=== PATIENT | female | born 2000 | race Caucasian/White ===

== ENCOUNTER 2022-11-20 19:02 | Emergency (ER) | payer BC, SELFPAY ==
[2022-11-20 19:23] VITALS: BP 161/94; PULSE 122; RESP 18; TEMP 37.3; O2SAT 98; BMI 49.8
--- NOTE | 2022-11-20 19:27 | CRLHL7_ITS ---
For Patients: As a result of the Cures Act, medical imaging exams and procedure reports are released immediately into your electronic medical record. You may view this report before your referring provider. If you have questions, please contact your health care provider. INDICATION: Fall, pain. TECHNIQUE: Three views of the left ankle. FINDINGS: Large amount of soft tissue swelling around the left ankle. No fracture or dislocation. Mortise appears intact. Dictated by Devante Hughes MD @ 11/20/2022 7:48:56 PM Dictated by: Devante Hughes MD @ 11/20/2022 19:49:03 (Electronically Signed)
--- NOTE | 2022-11-20 19:28 | ED_ITS ---
HPI - Extremity Injury (Lower) General Time Seen by Provider: 19:28 Date Seen: 11/20/22 Chief Complaint: Extremity Pain/Injury, Lower Stated Complaint: Ankle Injury Time Seen by Provider: 11/20/22 19:25 Source: patient and RN notes reviewed Mode of arrival: wheelchair Limitations: no limitations History of Present Illness HPI Narrative: Patient is a 22-year-old female coming to the ER with left ankle pain. She slipped on the ice about an hour ago injuring the left ankle. Not exactly sure what happened. She states it hurts around the ankle, not necessarily 1 p articular spot. No numbness or tingling. Nothing else was injured, did not hit her head. Related Data Home Medications Medication Instructions Recorded Confirmed No Known Home Medications 11/20/22 11/20/22 Allergies Allergy/AdvReac Type Severity Reaction Status Date / Time No Known Drug Allergies Allergy Verified 11/20/22 19:27 Review of Systems Narrative: As per HPI PFSH PFSH Social History Smoking Status: Never smoker How often do you have a drink containing alcohol: never AUDIT-C Alcohol total score: 0 Non-prescribed substance use: denies use Exam Const: Vital Signs, click to edit/add: Vital Signs - 24 hr 11/20/22 19:23 11/20/22 20:38 Temperature 99.1 F 99.1 F Pulse Rate [Left P ulse Oximeter] 122 H 101 H Respiratory Rate 18 18 Blood Pressure [Ri ght Forearm] 161/94 H 161/94 H Pulse Oximetry 98 Oxygen Delivery Me thod Room Air Documenting provider has reviewed patient's vital signs: yes Common normals: no apparent distress, oriented x3, no limitations, healthy appearing, alert and well nourished Other: 22-year-old female seen in triage, brought in in wheelchair. She has generalize ankle swelling, no ecchymosis. She has normal dorsalis pedis and posterior tibialis pulse. Normal sensation distally in her foot. Range of motion is painful at the ankle. She has more point tenderness over the distal lateral malleolus, does not seem to be tender over the medial malleolus. No gross joint swelling off the ankle. Will proceed with a left ankle x-ray. Neuro: Common normals: oriented x3 Sensorium/orientation: alert Course Course Hospital Course: Have advised patient will be obtaining a left ankle x-ray, she is in agreement with this plan. We will see if there is underlying fracture or just ankle sprain based on her imaging. Reevaluation(s) Reevaluation #1: Reviewed negative x-ray for fracture, this would represent an ankle sprain. Will see how she does with the stirrup splint. Time: 20:09 Reevaluation #2: Patient was still having significant pain with the gel splint on, will center with crutches to aid in ambulation. Given her mom to pain, am going to have her follow up in clinic for recheck regardless. Time: 20:12 Vital Signs Vital signs: Initial Vital Signs Temperature 99.1 F 11/20/22 19:23 Temperature Source Temporal Artery Scan 11/20/22 19:23 Pulse Rate 122 H 11/20/22 19:23 Respiratory Rate 18 11/20/22 19:23 Blood Pressure 161/94 H 11/20/22 19:23 Blood Pressure Mean 116 11/20/22 19:23 Blood Pressure Position Sitting 11/20/22 19:23 Pulse Oximetry 98 11/20/22 19:23 Oxygen Delivery Method 11/20/22 19:23 Vital Signs Temperature 99.1 F 11/20/22 19:23 Pulse Rate 122 H 11/20/22 19:23 Respiratory Rate 18 11/20/22 19:23 Blood Pressure 161/94 H 11/20/22 19:23 Pulse Oximetry 98 11/20/22 19:23 Oxygen Delivery Method 11/20/22 19:23 Temperature 99.1 F 11/20/22 20:38 Pulse Rate 101 H 11/20/22 20:38 Respiratory Rate 18 11/20/22 20:38 Blood Pressure 161/94 H 11/20/22 20:38 Pulse Oximetry 98 11/20/22 19:23 Oxygen Delivery Method 11/20/22 19:23 MDM - Extremity Injury (Lower) Imaging Data X-ray left ankle: Attestation: I have reviewed the pertinent imaging results. Radiologist's impression: [facility] Patient ID:?[id number] Site Patient ID:?[id number]. Site :?[id number] Study:?XRay Extremity Left ANKLE 3V-11/20/2022 7:38:10 PM Ordering Physician:Armani Womack Final Report: INDICATION: Fall, pain. TECHNIQUE: Three views of the left ankle. FINDINGS: Large amount of soft tissue swelling around the left ankle. No fracture or dislocation. Mortise appears intact. Dictated by Devante Hughes MD @ 11/20/2022 7:48:56 PM Dictated by: Devante Hughes MD @ 11/20/2022 19:49:03 (Electronic Signature) Critical Care Time Critical Care Time Critical Care Time: No Discharge Plan Discharge Clinical Impression: Left ankle sprain Patient Disposition: Home, Self-Care Condition: Stable Instructions: Ankle Sprain (ED) Additional Instructions: Ice and elevate over the next few days as much as you are able to to help diminish the swelling and pain. Can use Tylenol and ibuprofen as needed for pain control, follow bottle directions for dosing. Can use the splint as needed for stability and diminish pain with ambulating. Use crutches until you can bear weight without significant pain. Please schedule a clinic followup with in the next week for recheck of this ankle. Note provided for your work that you do have this injury. Activity Level: Activity as Tolerated Prescriptions: No Action No Known Home Medications Stand Alone Forms: [email or web address] Info Instructions
[2022-11-20 20:38] VITALS: BP 161/94; PULSE 101; RESP 18; TEMP 37.3
== END 2022-11-20 20:40 | disposition home or self-care (01) ==
LOC: ED 20:34
PROVIDERS: Emergency Provider Family Medicine
DX: S93.402A Sprain of unspecified ligament of left ankle, initial encounter (principal); W00.9XXA Unspecified fall due to ice and snow, initial encounter
CPT/HCPCS: 73610; 99283